=== PATIENT | male | born 1945 | race Caucasian/White ===

== ENCOUNTER 2020-06-01 06:09 | Observation (INO) | payer OTHER ==
[2020-06-01 07:51] LABS: Absolute Lymphocytes (CBC) 0.8 K/uL (0.7-4.9); Basophils % 0.6 % (0-1.3); Hematocrit 35.6 % (39.6-49.0); Lymphocytes % 11.3 % (15.3-44.8); MPV 7.6 fL (7.6-11.3); RBC Red Blood Cell Count 3.53 M/uL (4.33-5.43)
[2020-06-01 07:52] LABS: Protime INR 1.23
[2020-06-01 08:01] LABS: ALT/SGPT 21 U/L (12-78); AST/SGOT 17 U/L (15-37); Albumin 2.1 g/dL (3.4-5.0); Alkaline Phosphatase 335 U/L (45-117); BUN Blood Urea Nitrogen 23 mg/dL (7-18); Bicarbonate 31 mmol/L (21-32); Bilirubin Direct 0.5 mg/dL (0-0.2); Bilirubin Total 0.8 mg/dL (0.2-1.0); Glucose Level 92 mg/dL (74-106); Magnesium 2.2 mg/dL (1.8-2.4); NT PRO-BNP 1659 pg/mL (<125); Potassium 4.1 mmol/L (3.5-5.1); Protein, Total 6.6 g/dL (6.4-8.2); Sodium Level 136 mmol/L (136-145); Troponin (Emerg Dept Use Only) < 0.02 ng/mL (0.0-0.045)
--- NOTE | 2020-06-01 08:22 | RAD REPORT ---
EXAM DESCRIPTION: RAD - Chest Single View - 06/01/2020 6:56 am CLINICAL HISTORY: DYSPNEA COMPARISON: None TECHNIQUE: AP portable chest image was obtained 06/01/2020 6:56 am . FINDINGS: Lung volumes are low. Interstitial markings are accentuated by body habitus and low lung v olumes. Heart size is upper normal to slightly enlarged, accentuated by exam limitations. Vasculature is accentuated as well. Moderately large bilateral pleural effusions are present. No pneumothorax se en. No acute bony abnormality seen. No acute aortic findings suspected. IMPRESSION: Moderate-sized bilateral pleural effusions. Heart, vasculature and lung markings are prominent on this baseline study. Failure or volume overload cannot be excluded.
[2020-06-01] MEDS ORDERED: FUROSEMIDE 40 MG/4 ML VIAL ONE (08:25)
--- NOTE | 2020-06-01 08:57 | EDPHYS ---
Physician Documentation [facility] Name: John Gauthier Age: 74 yrs Sex: Male : 1945 Arrival Date: 06/01/2020 Time: 06:12 Bed 5 Private MD: ED Physician Roland Burt HPI: 06/01 06:57 This 74 yrs old Male presents to ER via Wheelchair with complaints of mh7 Breathing Difficulty. 06:57 The patient has shortness of breath at rest. mh7 06:57 Onset: The symptoms/episode began/occurred 1 week(s) ago. Duration: The symptoms are mh7 continuous, and are steadily getting worse. The patient's shortness of breath is aggravated by light activity. Associated signs and symptoms: Pertinent negatives: chest pain, non-productive cough, productive cough, diaphoresis, dizziness, fever, hemoptysis, loss of consciousness, nausea, numbness in extremities, visual changes, vomiting. Severity of symptoms: At their worst the symptoms were moderate 3 day(s) ago, in the emergency department the symptoms are unchanged. The patient has experienced similar episodes in the past, chronically. States that he has cirrhosis and usually gets paracentesis every week but last was 2 weeks ago since he is traveling.. 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 - Social history:: Smoking status: Patient denies any tobacco usage or history of. ROS: 06:57 Constitutional: Negative for fever, chills, and weight loss, Eyes: Negative for injury, mh7 pain, redness, and discharge, ENT: Negative for injury, pain, and discharge, Neck: Negative for injury, pain, and swelling, Cardiovascular: Negative for chest pain, palpitations, and edema, Back: Negative for injury and pain, : Negative for injury, bleeding, discharge, and swelling, MS/Extremity: Negative for injury and deformity, Skin: Negative for injury, rash, and discoloration, Neuro: Negative for headache, weakness, numbness, tingling, and seizure, Psych: Negative for depression, anxiety, suicide ideation, homicidal ideation, and hallucinations, Allergy/Immunology: Negative for hives, rash, and allergies, Endocrine: Negative for neck swelling, polydipsia, polyuria, polyphagia, and marked weight changes, Hematologic/Lymphatic: Negative for swollen nodes, abnormal bleeding, and unusual bruising. Exam: 06:57 Constitutional: This is a well developed, well nourished patient who is awake, alert, mh7 and in no acute distress. Head/Face: Normocephalic, atraumatic. Eyes: Pupils equal round and reactive to light, extra-ocular motions intact. Lids and lashes normal. Conjunctiva and sclera are non-icteric and not injected. Cornea within normal limits. Periorbital areas with no swelling, redness, or edema. Neck: Trachea midline, no thyromegaly or masses palpated, and no cervical lymphadenopathy. Supple, full range of motion without nuchal rigidity, or vertebral point tenderness. No Meningismus. Chest/axilla: Normal chest wall appearance and motion. Nontender with no deformity. No lesions are appreciated. Cardiovascular: Regular rate and rhythm with a normal S1 and S2. No gallops, murmurs, or rubs. Normal PMI, no JVD. No pulse deficits. 06:57 Respiratory: Lungs have equal breath sounds bilaterally, clear to auscultation and percussion. No rales, rhonchi or wheezes noted. No increased work of breathing, no retractions or nasal flaring. 06:57 Back: No spinal tenderness. No costovertebral tenderness. Full range of motion. Skin: Warm, dry with normal turgor. Normal color with no rashes, no lesions, and no evidence of cellulitis. MS/ Extremity: Pulses equal, no cyanosis. Neurovascular intact. Full, normal range of motion. Neuro: Awake and alert, GCS 15, oriented to person, place, time, and situation. Cranial nerves II-XII grossly intact. Motor strength 5/5 in all extremities. Sensory grossly intact. Cerebellar exam normal. Normal gait. Psych: Awake, alert, with orientation to person, place and time. Behavior, mood, and affect are within normal limits. 06:57 Abdomen/GI: Inspection: distension, that is moderate, Palpation: nontender, in all quadrants. Vital Signs: 06:29 BP 112 / 76; Pulse 88; Resp 25; Temp 97.5; Pulse Ox 97% on R/A; Weight 106.59 kg; mg2 Height 6 ft. 0 in. (182.88 cm); 08:00 BP 98 / 63; Pulse 82; Resp 19; Pulse Ox 95% ; bp 09:17 BP 100 / 80; Pulse 82; Resp 23 S; Pulse Ox 97% on 3 lpm NC; jl7 10:00 BP 103 / 66; Pulse 85; Resp 15; Pulse Ox 85% ; bp 11:00 BP 103 / 75; Pulse 86; Resp 16; Pulse Ox 92% on 2 lpm NC; bp 12:00 BP 102 / 69; Pulse 79; Resp 21; Pulse Ox 100% ; bp 06:29 Body Mass Index 31.87 (106.59 kg, 182.88 cm) mg2 MDM: 07:12 Patient medically screened. rn 08:55 Differential diagnosis: pulmonary edema, ascites, cirrhosis, volume overload. Data rn reviewed: vital signs, nurses notes, lab test result(s), EKG, radiologic studies, plain films, and as a result, I will admit patient. Counseling: I had a detailed discussion with the patient and/or guardian regarding: the historical points, exam findings, and any diagnostic results supporting the discharge/admit diagnosis, lab results, radiology results, the need for further work-up and treatment in the hospital. Response to treatment: the patient's symptoms have mildly improved after treatment, and as a result, I will admit patient. ED course: Will admit to Dr. Paula for diuresis and paracentesis. . 06/01 06:33 Order name: Basic Metabolic Panel mg2 06/01 06:33 Order name: CBC with Diff; Complete Time: 08:55 mg2 06/01 06:33 Order name: LFT's; Complete Time: 08:55 mg2 06/01 06:33 Order name: Magnesium; Complete Time: 08:55 mg2 06/01 06:33 Order name: NT PRO-BNP; Complete Time: 08:55 mg2 06/01 06:33 Order name: PT-INR; Complete Time: 08:55 mg2 06/01 06:33 Order name: Troponin (emerg Dept Use Only); Complete Time: 08:55 mg2 06/01 06:33 Order name: XRAY Chest (1 view); Complete Time: 08:55 mg2 06/01 06:33 Order name: EKG; Complete Time: 06:34 mg2 06/01 06:33 Order name: Cardiac monitoring; Complete Time: 06:53 mg2 06/01 06:34 Order name: Basic Metabolic Panel; Complete Time: 08:55 EDMS 06/01 08:28 Order name: SARS-COV-2 RT PCR; Complete Time: 08:55 EDMS 06/01 06:33 Order name: EKG - Nurse/Tech; Complete Time: 06:53 mg2 06/01 06:33 Order name: IV Saline Lock; Complete Time: 06:53 mg2 06/01 06:33 Order name: Labs collected and sent; Complete Time: 06:53 mg2 06/01 06:33 Order name: O2 Per Protocol; Complete Time: 06:53 mg2 06/01 06:33 Order name: O2 Sat Monitoring; Complete Time: 06:53 mg2 Administered Medications: 08:00 Drug: Lasix 40 mg Route: IVP; Site: right jugular; bp 11:13 Follow up: Response: No adverse reaction bp Disposition: 06/01/20 08:58 Hospitalization ordered by Maikol Paula for Observation. Preliminary diagnosis are Ascites, Pleural effusion, not elsewhere classified, Dyspnea, unspecified. - Bed requested for Telemetry/MedSurg (observation). - Status is Observation. bp - Condition is Stable. - Problem is an ongoing problem. - Symptoms have improved. Signatures: Dispatcher [employer] EDTN Roland Burt MD MD rn Martinez, Eric em1 Rom Mulligan RN RN bp Isiah Zavaleta RN RN mg2 Hermilo Diaz MD MD 7 Corrections: (The following items were deleted from the chart) 07:40 07:13 CORONAVIRUS+[id number] ordered. [facility] EDTN 08:58 08:57 06/01/2020 08:57 Discharged to Home. Impression: Ascites; Pleural effusion, not rn elsewhere classified; Dyspnea, unspecified. Condition is Stable. Forms are SBAR form, Medication Reconciliation Form, Thank You Letter, Antibiotic Education, Prescription Opioid Use. Follow up: Private Physician; When: As needed; Reason: Recheck today's complaints, Re-evaluation by your physician. Problem is an ongoing problem. Symptoms have improved. rn 09:53 08:58 Hospitalization Ordered by Maikol Paula DO for Inpatient Admission. Preliminary rn diagnosis is Ascites; Pleural effusion, not elsewhere classified; Dyspnea, unspecified. Bed requested for Telemetry/MedSurg (Inpatient). Status is Inpatient Admission. Condition is Stable. Problem is an ongoing problem. Symptoms have improved. rn 09:53 09:53 06/01/2020 08:58 Hospitalization Ordered by Maikol Paula DO for Observation. rn Preliminary diagnosis is Ascites; Pleural effusion, not elsewhere classified; Dyspnea, unspecified. Bed requested for Telemetry/MedSurg (Inpatient). Status is Observation. Condition is Stable. Problem is an ongoing problem. Symptoms have improved. rn 11:46 09:53 06/01/2020 08:58 Hospitalization Ordered by MaikolJeanine HICKEY for Observation. em1 Preliminary diagnosis is Ascites; Pleural effusion, not elsewhere classified; Dyspnea, unspecified. Bed requested for Telemetry/MedSurg (observation). Status is Observation. Condition is Stable. Problem is an ongoing problem. Symptoms have improved. rn 12:24 11:46 06/01/2020 08:58 Hospitalization Ordered by Maikol Chai HICKEY for Observation. bp Preliminary diagnosis is Ascites; Pleural effusion, not elsewhere classified; Dyspnea, unspecified. Bed requested for Telemetry/MedSurg (observation). Status is Observation. Condition is Stable. Problem is an ongoing problem. Symptoms have improved. em1
--- NOTE | 2020-06-01 08:57 | ER ---
Nurse's Notes [facility] Name: John Gauthier Age: 74 yrs Sex: Male : 1945 Arrival Date: 06/01/2020 Time: 06:12 Bed 5 Private MD: Diagnosis: Ascites;Pleural effusion, not elsewhere classified;Dyspnea, unspecified Presentation: 06/01 06:29 Chief complaint: Patient states: i have difficulty breathing and I need paracentesis. i mg2 usually get paracentesis every week and the last time i had it was 2 weeks ago in [place] and [place]. Coronavirus screen: Client denies travel out of the [place] in the last 14 days. Ebola Screen: No symptoms or risks identified at this time. Initial Sepsis Screen: Does the patient meet any 2 criteria? RR > 20 per min. Does the patient have a suspected source of infection? No. Patient's initial sepsis screen is negative. Risk Assessment: Do you want to hurt yourself or someone else? Patient reports no desire to harm self or others. Onset of symptoms was June 01, 2020. 06:29 Method Of Arrival: Wheelchair [facility] 06:29 Acuity: JOSE L 2 mg2 Triage Assessment: 07:00 General: Appears distressed, uncomfortable, Behavior is calm, cooperative, appropriate bp for age. Pain: Denies pain. EENT: SCLERA ICTERIC. Neuro: Level of Consciousness is awake, alert, obeys commands, Oriented to person, place, time, situation, Appropriate for age. Cardiovascular: No deficits noted. Respiratory: Reports shortness of breath Airway is patent Respiratory effort is labored, Breath sounds with rales bilaterally. Onset: The symptoms/episode began/occurred at an unknown time. the patient has moderate shortness of breath. GI: Abdomen is noted to have ascites. : No signs and/or symptoms were reported regarding the genitourinary system. Derm: Skin is jaundiced. Musculoskeletal: No deficits noted. 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 - Social history:: Smoking status: Patient denies any tobacco usage or history of. Screenin:46 Abuse screen: Denies threats or abuse. Denies injuries from another. Nutritional mg2 screening: No deficits noted. Tuberculosis screening: No symptoms or risk factors identified. Fall Risk IV access (20 points). Assessment: 06:45 General: Appears distressed, Behavior is calm, cooperative. Pain: Denies pain. Neuro: mg2 Level of Consciousness is awake, alert, obeys commands, Oriented to person, place, time, situation. Cardiovascular: Rhythm is sinus arrythmia. Respiratory: Airway is patent Respiratory effort is labored, Respiratory pattern is regular, tachypnea. GI: Abdomen is distended, noted to have ascites. : No signs and/or symptoms were reported regarding the genitourinary system. EENT: No signs and/or symptoms were reported regarding the EENT system. Derm: Skin is redness in the abdominal area. Musculoskeletal: Circulation, motion, and sensation intact. Capillary refill < 3 seconds. 07:00 Reassessment: RECD REPORT FROM LEIGHANN ROTH. 74YO WM P/W SOB AND ASCITES, ANASARCA NOTED bp TO BLE. 08:00 Reassessment: No changes from previously documented assessment. Patient and/or family bp updated on plan of care and expected duration. Pain level reassessed. Patient is alert, oriented x 3, equal unlabored respirations, skin warm/dry/pink. ALL CURRENT ORDERS COMPLETED. 08:30 Reassessment: Pt's O2 sats at 87%, requesting oxygen, ERD notified and O2 placed on pt jl7 via NC at 3 lpm. 09:36 Reassessment: No changes from previously documented assessment. Patient and/or family bp updated on plan of care and expected duration. Pain level reassessed. Patient is alert, oriented x 3, equal unlabored respirations, skin warm/dry/pink. DR SUERO AT B/S FOR ADMIT. 11:12 Reassessment: No changes from previously documented assessment. Patient and/or family bp updated on plan of care and expected duration. Pain level reassessed. Patient is alert, oriented x 3, equal unlabored respirations, skin warm/dry/pink. ADMIT IN PROCESS. 12:11 Reassessment: ADMIT COMPLETE. TRANSPORT MELINDA PENDING. bp Vital Signs: 06:29 BP 112 / 76; Pulse 88; Resp 25; Temp 97.5; Pulse Ox 97% on R/A; Weight 106.59 kg; mg2 Height 6 ft. 0 in. (182.88 cm); 08:00 BP 98 / 63; Pulse 82; Resp 19; Pulse Ox 95% ; bp 09:17 BP 100 / 80; Pulse 82; Resp 23 S; Pulse Ox 97% on 3 lpm NC; jl7 10:00 BP 103 / 66; Pulse 85; Resp 15; Pulse Ox 85% ; bp 11:00 BP 103 / 75; Pulse 86; Resp 16; Pulse Ox 92% on 2 lpm NC; bp 12:00 BP 102 / 69; Pulse 79; Resp 21; Pulse Ox 100% ; bp 06:29 Body Mass Index 31.87 (106.59 kg, 182.88 cm) mg2 ED Course: 06:12 Patient arrived in ED. cl3 06:21 Hermilo Diaz MD is Attending Physician. mh7 06:29 Isiah Zavaleta, IRA is Primary Nurse. mg2 06:31 Triage completed. mg2 06:32 Arm band placed on. mg2 06:46 Patient has correct armband on for positive identification. Door closed. Warm blanket mg2 given. 06:47 No provider procedures requiring assistance completed. mg2 06:54 Inserted saline lock: 24 gauge in left forearm, using aseptic technique. Blood mg2 collected. by IRA Cisneros. 06:56 XRAY Chest (1 view) In Process Unspecified. EDMS 07:12 Attending Physician role handed off by Hermilo Diaz MD rn 07:12 Roland Burt MD is Attending Physician. rn 07:26 Inserted saline lock: 18 gauge in right EJ, using aseptic technique. Blood collected. mg2 08:01 Primary Nurse role handed off by Isiah Zavaleta, IRA bp 08:01 Rom Mulligan, IRA is Primary Nurse. bp 08:58 Maikol Suero DO is Hospitalizing Provider. rn 12:12 Patient admitted, IV remains in place. bp Administered Medications: 08:00 Drug: Lasix 40 mg Route: IVP; Site: right jugular; bp 11:13 Follow up: Response: No adverse reaction bp Outcome: 08:57 Discharge ordered by . rn 08:58 Decision to Hospitalize by Provider. rn 12:11 Admitted to Med/surg accompanied by tech, via wheelchair, room 220, with chart, Report bp called to ASHLEY ROTH 12:11 Condition: stable 12:11 Discharge instructions given to patient, Instructed on the need for admit. 12:24 Patient left the ED. bp Signatures: Dispatcher [employer] EDMS Roland Burt MD MD rn Leal, Jahala, RN RN jl7 Rom Mulligan RN RN bp Isiah Zavaleta RN RN mg2 Brian Martínez 3 Hermilo Diaz MD MD 7
[2020-06-01 12:55] VITALS: BMI 31.8
--- NOTE | 2020-06-01 13:46 | P.HP ---
Certification for Inpatient Patient admitted to: Observation With expected LOS: <2 Midnights Patient will require the following post-hospital care: None Practitioner: I am a practitioner with admitting privileges, knowledge of patient current condition, hospital course, and medical plan of care. Services: Services provided to patient in accordance with Admission requirements found in Title 42 Section 412.3 of the Code of Federal Regulations Patient History Date of Service: 06/01/20 Primary Care Provider: [place] Reason for admission: SOB History of Present Illness: 74-year-old male with history of cardiac cirrhosis, chronic renal disease stage 3, hypothyroidism. Patient presented with increasing shortness of breath and edema to the lower extremities and ascites. Patient is from [place]. He staying with his who is a nurse traveler. He was in the process of making arrangements to see GI locally. He was trying to arrange a paracentesis. He has been getting paracentesis every other week. Ascites and increasing shortness of breath has been getting worse. He denies any fever, chills. In the ER patient was evaluated. Chest x-ray showed bilateral pleural effusions. White count 7.2, hemoglobin 11.8. Platelet count 200. Sodium 136, potassium 4.1. BUN 23, creatinine 1.41 with a GFR 49. Glucose 92. Troponin unremarkable. BNP 16 52. Patient was tested negative for COVID. Patient required oxygen in the emergency room. Patient admitted for further evaluation and treatment. Patient stable this time. Patient reports that he is being evaluated for possible heart surgery in the future. Allergies No Known Allergies Allergy (Unverified 06/01/20 13:23) Home medications list reviewed: Yes Home Medications: Colchicine [Colcrys *] 0.3 mg PO BID 06/01/20 Furosemide [Lasix] 60 mg PO BID 06/01/20 Gabapentin 300 mg PO BEDTIME 06/01/20 Levothyroxine [Synthroid] 50 mcg PO [id number] 06/01/20 Midodrine HCl [Proamatine] 5 mg PO TID 06/01/20 Spironolactone [Aldactone] OP 06/01/20 Tamsulosin HCl [Flomax] 0.4 mg PO DAILY 06/01/20 - Past Medical/Surgical History Has patient received pneumonia vaccine in the past: Yes Diabetic: No -: Cardiac cirrhosis -: Chronic renal disease stage III -: Hypothyroidism -: APPENDECTOMY -: L LEG FRACTURE Psychosocial/ Personal History: Patient lives with . is a traveling nurse. She is in the area to work. He gets this care mostly in [place]. - Family History Family History: Reviewed- Non-Contributory - Social History Smoking Status: Former smoker Counseled patient to stop smoking for: less than 10 minutes Alcohol use: No CD- Drugs: No Caffeine use: Yes Place of Residence: Home Review of Systems General: Weakness, Malaise, As per HPI Eyes: Unremarkable ENT: Unremarkable Respiratory: Shortness of Breath, SOB with Excertion, As per HPI Cardiovascular: Edema, As per HPI Gastrointestinal: Unremarkable Genitourinary: Unremarkable Musculoskeletal: Pedal edema, As per HPI Integumentary: As per HPI Neurological: Unremarkable Lymphatics: Unremarkable Physical Examination - Vital Signs Temperature: 97.5 F Blood Pressure: 102/69 Pulse: 79 Respirations: 21 - Physical Exam General: Alert, In no apparent distress, Oriented x3, Cooperative HEENT: Atraumatic Neck: Supple Respiratory: Crackles/rales (Crackles to the bases bilateral) Cardiovascular: Normal pulses, Regular rate/rhythm Gastrointestinal: Normal bowel sounds, No masses, No rebound, No guarding, Ascites (Ascites noted) Musculoskeletal: No tenderness, No warmth Integumentary: Tenderness/swelling (1 to 2+ pitting edema to the lower extremities bilateral) Neurological: Normal speech, Normal strength at 5/5 x4 extr, Normal tone, Normal affect - Studies Laboratory Data (last 24 hrs) 06/01/20 07:26: PT 14.2 H, INR 1.23 06/01/20 07:26: WBC 7.20, Hgb 11.8 L, Hct 35.6 L, Plt Count 200 06/01/20 07:26: Sodium 136, Potassium 4.1, BUN 23 H, Creatinine 1.41 H, Glucose 92, Magnesium 2.2, Total Bilirubin 0.8, AST 17, ALT 21, Alkaline Phosphatase 335 H Assessment and Plan - Plan Impression: Dyspnea, hypoxia secondary to bilateral pleural effusions complicated with cardiac cirrhosis and ascites suspect underlying congestive heart failure Chronic renal disease stage III Hypothyroidism Gout Plan: Dyspnea, hypoxia secondary to bilateral pleural effusions complicated with cardiac cirrhosis and ascites suspect underlying congestive heart failure: Patient will be admitted for further evaluation and treatment. Will start IV Lasix 40 mg 1 pill twice daily. Continue Aldactone 50 mg 1 pill twice daily. Will will make arrangements for ultrasound-guided paracentesis. Will try to remove less than 5 L of ascitic fluid. Will need to provide IV albumin after the procedure. Will also obtain lab/chemistry/cytology from fluid. Will order echocardiogram to further evaluate. Will also continue with Midodrine 10 mg 1 pill 3 times a day, lactulose 3 times a day. Will make arrangements for home oxygen maintain sats above 93%. Anticipate improvement over the next 24-48 hr. Will try to get in contact with GI locally as the patient was to follow up with GI to establish care today. Patient will likely need to establish care with GI so as to follow up and have repeat paracentesis in the future. This can be done as an outpatient in the future. Anticipate improvement with diuresis and paracentesis. Continue monitor closely. Recheck chest x-ray tomorrow. Advanced care planning addressed. Patient is do not resuscitate. Anticipate possible discharge tomorrow if improved. Chronic renal disease stage III: Monitor closely. Hypothyroidism: Continue home medication Gout: Restart home medication. Discharge Plan: Home Plan to discharge in: 48 Hours - Advance Directives Does patient have a Living Will: No Does patient have a Durable POA for Healthcare: No - Code Status/Comfort Care Code Status Assessed: Yes (Patient is do not resuscitate.) Time Spent Managing Pts Care (In Minutes): 55
[2020-06-01] MEDS ORDERED: ACETAMINOPHEN 500 MG TAB PO PRN (14:34)
[2020-06-01] MEDS ORDERED: ONDANSETRON 4 MG/2 ML VIAL IV PRN (14:34)
[2020-06-01] MEDS: MIDODRINE HCL 5 MG TABLET PO SCH ×2 (15:41→21:45)
--- NOTE | 2020-06-01 17:08 | EKG ---
Test Date: 2020-06-01 Test Time: 06:38:27 Packaging Line Operator: MG MEASUREMENT RESULTS: Intervals: Rate: 86 MI: 148 QRSD: 84 QT: 384 QTc: 459 [place]: P: 37 MI: 148 QRS: 60 T: 0 INTERPRETIVE STATEMENTS: Normal sinus rhythm with sinus arrhythmia Low voltage QRS Nonspecific T wave abnormality Abnormal ECG No previous ECG available for comparison Electronically Signed On 06-01-20 17:06:01 NEWS CAMERA OPERATOR by Allan Mendez
[2020-06-01] MEDS: LACTULOSE 20 GM/30 ML UCUP PO SCH ×2 (17:15→21:00)
[2020-06-01] MEDS: FUROSEMIDE 40 MG/4 ML VIAL IV SCH (17:15)
[2020-06-01 18:13] LABS: Urine Appearance CLEAR; Urine Bilirubin NEGATIVE (NEG); Urine Blood NEGATIVE (NEG); Urine Color YELLOW; Urine Glucose NEGATIVE (NEG); Urine Microscopic Reflex ORDER UMIC; Urine Protein NEGATIVE (NEG); Urine Urobilinogen 0.2 mg/dL (0.2-1.0)
[2020-06-01 18:21] LABS: Urine Bacteria <20 /HPF (NONE SEEN); Urine Mucus 1+ /HPF (NONE SEEN); Urine RBC NONE SEEN /HPF (NONE SEEN)
[2020-06-01] MEDS: SPIRONOLACTONE 25 MG TABLET PO SCH (21:00)
[2020-06-02] MEDS ORDERED: LEVOTHYROXINE SOD 0.1 MG TAB PO SCH (06:30)
[2020-06-02] MEDS ORDERED: LEVOTHYROXINE SOD 0.075 MG TAB PO SCH (06:30)
[2020-06-02] MEDS ORDERED: PANTOPRAZOLE 40MG TABLET PO SCH (06:30)
[2020-06-02 06:33] LABS: Basophils % 0.8 % (0-1.3); Hematocrit 41.3 % (39.6-49.0); Lymphocytes % 14.7 % (15.3-44.8); MPV 7.5 fL (7.6-11.3); RBC Red Blood Cell Count 4.02 M/uL (4.33-5.43)
[2020-06-02 06:53] LABS: Albumin 2.3 g/dL (3.4-5.0); Bilirubin Total 0.8 mg/dL (0.2-1.0); Magnesium 2.3 mg/dL (1.8-2.4); Potassium 4.1 mmol/L (3.5-5.1); Protein, Total 7.6 g/dL (6.4-8.2)
[2020-06-02 07:00] LABS: Thyroid Stimulating Hormone 29.2 uIU/mL (0.360-3.740)
[2020-06-02] MEDS: SPIRONOLACTONE 25 MG TABLET PO SCH (08:43)
[2020-06-02] MEDS: LACTULOSE 20 GM/30 ML UCUP PO SCH ×2 (08:43→13:15)
[2020-06-02] MEDS: MIDODRINE HCL 5 MG TABLET PO SCH ×2 (08:44→13:14)
[2020-06-02] MEDS ORDERED: FOLIC ACID 1 MG TABLET PO SCH (09:00)
[2020-06-02] MEDS: FUROSEMIDE 40 MG/4 ML VIAL IV SCH ×2 (09:00→16:36)
[2020-06-02] MEDS ORDERED: ENOXAPARIN 40 MG/0.4 ML SQ SCH (09:00)
[2020-06-02] MEDS ORDERED: THIAMINE HCL 100 MG TABLET PO SCH (09:00)
--- NOTE | 2020-06-02 09:48 | RAD REPORT ---
EXAM DESCRIPTION: US - Paracentesis Proc Guidance - 06/02/2020 9:41 am CLINICAL HISTORY: Cardiac cirrhosis and ascites FINDINGS: The risks, benefits and alternatives to the procedure were explained to the patient and in formed consent obtained. The skin and subcutaneous tissues were anesthetized with Lidocaine. Under sonographic guidance an 8 F rench catheter was placed into the right lower quadrant. 5 liters of yellow fluid was removed and sen t to the lab The patient experienced no immediate complication. IMPRESSION: Paracentesis
[2020-06-02] MEDS: ALBUMIN HUMAN 25% 100 ML IV SCH ×2 (10:29→11:12)
--- NOTE | 2020-06-02 10:55 | P.DS ---
Admission Date: 06/01/20 Discharge Date: 06/02/20 Primary Care Provider: [place] Disposition: ROUTINE DISCHARGE Discharge Condition: GOOD Reason for Admission: SOB Consultations: Radiology Procedures: COVID: Negative Follow up CXR: FINDINGS: The lungs are better inflated. Moderately large bilateral pleural effusions have shown no improvement. Lung base atelectasis and/ or infiltrate are still present. Trachea remains midline. Heart size is normal. Central vasculature and interstitial pattern has improved appear no pneumothorax. No acute bony finding noted. No aortic abnormality. IMPRESSION: CHF/volume overload findings have improved. Patient still has moderately large bilateral pleural effusions with lung base atelectasis. Radiology assisted US guided paracentesis: FINDINGS: The risks, benefits and alternatives to the procedure were explained to the patient and informed consent obtained. The skin and subcutaneous tissues were anesthetized with Lidocaine. Under sonographic guidance an 8 Sinhala catheter was placed into the right lower quadrant. 5 liters of yellow fluid was removed and sent to the lab The patient experienced no immediate complication. IMPRESSION: Paracentesis ECHO: Medical Problem List: Dyspnea, hypoxia secondary to bilateral pleural effusions complicated with cardiac cirrhosis and ascites suspect underlying congestive heart failure Chronic renal disease stage III Hypothyroidism Gout Brief History of Present Illness: 74-year-old male with history of cardiac cirrhosis, chronic renal disease stage 3, hypothyroidism. Patient presented with increasing shortness of breath and edema to the lower extremities and ascites. Patient is from [place]. He staying with his who is a nurse traveler. He was in the process of making arrangements to see GI locally. He was trying to arrange a paracentesis. He has been getting paracentesis every other week. Ascites and increasing shortness of breath has been getting worse. He denies any fever, chills. In the ER patient was evaluated. Chest x-ray showed bilateral pleural effusions. White count 7.2, hemoglobin 11.8. Platelet count 200. Sodium 136, potassium 4.1. BUN 23, creatinine 1.41 with a GFR 49. Glucose 92. Troponin unremarkable. BNP 16 52. Patient was tested negative for COVID. Patient required oxygen in the emergency room. Patient admitted for further evaluation and treatment. Patient stable this time. Patient reports that he is being evaluated for possible heart surgery in the future. Hospital Course: Patient presented with dyspnea, hypoxia secondary to bilateral pleural effusions complicated with cardiac cirrhosis and ascites. Patient likely with underlying congestive heart failure. Patient is statying with his who travels as a traveling nurse. Patient start to have increasing symptoms after he was holding his diuretic therapy at night. Patient was admitted for treatment. Patient was given IV diuretic therapy with improvement. Patient also had radiology assisted ultrasound-guided paracentesis. 5 L of ascitic fluid removed. Patient has improved. Patient appears to be at his baseline level. At discharge patient will continue with a 1500 cc per day fluid restriction and low-salt diet. At discharge medications have been adjusted. At discharge he will continue with Lasix 80 mg 1 pill twice daily for the next week then decrease to 40 mg 1 pill twice daily. The patient will continue with his Aldactone 50 mg 1 pill twice daily. Compliance with medication addressed in detail. Patient is originally from [place]. Patient plans to establish care locally with GI for recurrent paracentesis. He has made arrangements for future paracentesis within the next week or 2 with local GI. Recommend follow up with his communicable disease specialist and PCP in the next 1-2 weeks to follow up this hospitalization or as soon as he goes back to [place]. Prior to discharge home oxygen will be arranged. Patient currently on 2 L per nasal cannula. Maintain sats above 93%. Patient with chronic renal disease stage III. This appears stable at this time. Recommend no further use of nonsteroidal anti-inflammatories. Future medications will need to be renally dose. As mentioned above patient will continue with a 1500 cc per day fluid restriction. Recommend to recheck lab-BMP in 2-4 weeks to monitor stability. Recommend follow up with nephrology to further monitor and adjust medication. Patient with hypothyroidism. Tsh abnormal. At discharge will continue levothyroxine at 175 mcg daily. Recommend to recheck tsh and free T4 in 4-6 weeks to monitor his progress. Further adjustment in medication may be required at that time. This can be done with the help of his PCP. Patient with GERD. At discharge patient will continue with Protonix 40 mg daily. Patient with history of gout. At discharge patient will continue with Colcrys 0.3 mg 1 pill twice daily. Patient with history of neuropathy. At discharge patient will continue with his medication of gabapentin 300 mg at bedtime. Hold if with increase sedation. May need to further adjust gabapentin as increased doses can increase edema. This can be done with the help of his PCP. Patient with BPH. At discharge patient will continue with Flomax 0.4 mg 1 pill daily. At discharge patient will continue his other medications including folic acid 1 mg daily and thiamine 100 mg daily. Patient will also be provided lactulose to be use to maintain adequate bowel movement. He may be use as needed. Vital Signs/Physical Exam: Temp Pulse Resp BP Pulse Ox 97.4 F 83 20 108/62 98 06/02/20 08:00 06/02/20 08:00 06/02/20 08:00 06/02/20 08:00 06/02/20 08:00 General: Alert, In no apparent distress, Cooperative HEENT: Atraumatic Neck: Supple Respiratory: Other (Better air movement noted. Slight crackles to the bases) Cardiovascular: Normal pulses, Regular rate/rhythm Gastrointestinal: Normal bowel sounds, No masses, No rebound, No guarding, As cites (Ascites improved status post paracentesis. 5 L removed) Integumentary: Tenderness/swelling (1 to 2+ pitting edema to the lower extremities slight improvement noted) Neurological: Normal speech, Normal strength at 5/5 x4 extr, Normal tone, Normal affect Laboratory Data at Discharge: WBC 6.80 K/uL (4.3-10.9) 06/02/20 06:14 Hgb 13.2 g/dL (13.6-17.9) L 06/02/20 06:14 Hct 41.3 % (39.6-49.0) D 06/02/20 06:14 Plt Count 188 K/uL (152-406) 06/02/20 06:14 PT 14.2 SECONDS (9.5-12.5) H 06/01/20 07:26 INR 1.23 06/01/20 07:26 Sodium 137 mmol/L (136-145) 06/02/20 06:14 Potassium 4.1 mmol/L (3.5-5.1) 06/02/20 06:14 BUN 25 mg/dL (7-18) H 06/02/20 06:14 Creatinine 1.75 mg/dL (0.55-1.3) H 06/02/20 06:14 Glucose 80 mg/dL (74-106) 06/02/20 06:14 Magnesium 2.3 mg/dL (1.8-2.4) 06/02/20 06:14 Total Bilirubin 0.8 mg/dL (0.2-1.0) 06/02/20 06:14 AST 20 U/L (15-37) 06/02/20 06:14 ALT 22 U/L (12-78) 06/02/20 06:14 Alkaline Phosphatase 387 U/L (45-117) H 06/02/20 06:14 Home Medications: Colchicine [Colcrys *] 0.3 mg PO BID 06/01/20 Gabapentin 300 mg PO BEDTIME 06/01/20 Tamsulosin HCl [Flomax] 0.4 mg PO DAILY 06/01/20 Folic Acid 1 mg PO DAILY #90 tablet 06/02/20 Furosemide [Lasix] 80 mg PO BIDL #120 tab 06/02/20 Lactulose 15 ml PO TID PRN 06/02/20 Levothyroxine Sodium [Levothyroxine] 175 mcg PO DAILY 06/02/20 Midodrine HCl 10 mg PO TID #180 06/02/20 Pantoprazole [Protonix Tab] 40 mg PO DAILY #30 tab 06/02/20 Spironolactone [Aldactone] 1 tab PO BID 06/02/20 Thiamine HCl 100 mg PO DAILY #90 tablet 06/02/20 New Medications: Folic Acid 1 mg PO DAILY #90 tablet Furosemide [Lasix] 80 mg PO BIDL #120 tab Midodrine HCl 10 mg PO TID #180 Pantoprazole [Protonix Tab] 40 mg PO DAILY #30 tab Thiamine HCl 100 mg PO DAILY #90 tablet Physician Discharge Instructions: Patient presented with dyspnea, hypoxia secondary to bilateral pleural effusions complicated with cardiac cirrhosis and ascites. Patient likely with underlying congestive heart failure. Patient is statying with his who travels as a traveling nurse. Patient start to have increasing symptoms after he was holding his diuretic therapy at night. Patient was admitted for treatment. Patient was given IV diuretic therapy with improvement. Patient also had radiology assisted ultrasound-guided paracentesis. 5 L of ascitic fluid removed. Patient has improved. Patient appears to be at his baseline level. At discharge patient will continue with a 1500 cc per day fluid restriction and low-salt diet. At discharge medications have been adjusted. At discharge he will continue with Lasix 80 mg 1 pill twice daily for the next week then decrease to 40 mg 1 pill twice daily. The patient will continue with his Aldactone 50 mg 1 pill twice daily. Compliance with medication addressed in detail. Patient is originally from [place]. Patient plans to establish care locally with GI for recurrent pa racentesis. He has made arrangements for future paracentesis within the next week or 2 with local GI. Recommend follow up with his communicable disease specialist and PCP in the next 1-2 weeks to follow up this hospitalization or as soon as he goes back to [place]. Prior to discharge home oxygen will be arranged. Patient currently on 2 L per nasal cannula. Maintain sats above 93%. Patient with chronic renal disease stage III. This appears stable at this time. Recommend no further use of nonsteroidal anti-inflammatories. Future medications will need to be renally dose. As mentioned above patient will continue with a 1500 cc per day fluid restriction. Recommend to recheck lab-BMP in 2-4 weeks to monitor stability. Recommend follow up with nephrology to further monitor and adjust medication. Patient with hypothyroidism. Tsh abnormal. At discharge will continue levothyroxine at 175 mcg daily. Recommend to recheck tsh and free T4 in 4-6 weeks to monitor his progress. Further adjustment in medication may be required at that time. This can be done with the help of his PCP. Patient with GERD. At discharge patient will continue with Protonix 40 mg daily. Patient with history of gout. At discharge patient will continue with Colcrys 0.3 mg 1 pill twice daily. Patient with history of neuropathy. At discharge patient will continue with his medication of gabapentin 300 mg at bedtime. Hold if with increase sedation. May need to further adjust gabapentin as increased doses can increase edema. This can be done with the help of his PCP. Patient with BPH. At discharge patient will continue with Flomax 0.4 mg 1 pill daily. At discharge patient will continue his other medications including folic acid 1 mg daily and thiamine 100 mg daily. Patient will also be provided lactulose to be use to maintain adequate bowel movement. He may be use as needed. Diet: Renal Activity: Fall precautions Followup: [facility] [Primary Care Provider] - Time spent managing pt's care (in minutes): 55
[2020-06-02 13:28] LABS: Appearance SLT. TURBID (CLEAR); Body Fluid Source PLEURAL; Body Fluid WBC 88 /mm^3; Color of fluid Colorless (COLORLESS)
--- NOTE | 2020-06-02 14:03 | ECHO ---
HEIGHT: 6 ft 0 in WEIGHT: 235 lb 0 oz DATE OF STUDY: 06/02/[address]: Maikol Paula DO 2-DIMENSIONAL: YES M.MODE: YES DOPPLER: YES COLOR FLOW: YES TDS: PORTABLE: DEFINITY: BUBBLE STUDY: DIAGNOSIS: CONGESTIVE HEART FAILURE CARDIAC HISTORY: CATHERIZATION: SURGERY: PROSTHETIC VALVE: PACEMAKER: MEASUREMENTS (cm) DIASTOLIC (NORMALS) SYSTOLIC (NORMALS) IVSd 0.8 (0.6-1.2) LA Diam 3.4 (1.9-4.0) LVEF 89% LVIDd 3.3 (3.5-5.7) LVIDs 1.4 (2.0-3.5) %FS 58% LVPWd 0.9 (0.6-1.2) Ao Diam 2.5 (2.0-3.7) 2 DIMENSIONAL ASSESSMENT: RIGHT ATRIUM: NORMAL LEFT ATRIUM: NORMAL RIGHT VENTRICLE: NORMAL LEFT VENTRICLE: NORMAL TRICUSPID VALVE: NORMAL MITRAL VALVE: MITRAL ANNULAR CALCIFICATION PULMONIC VALVE: NORMAL AORTIC VALVE: SCLEROSIS PERICARDIAL EFFUSION: NONE AORTIC ROOT: NORMAL LEFT VENTRICULAR WALL MOTION: DIASTOLIC DYSFUNCTION DOPPLER/COLOR FLOW: NORMAL COMMENTS: DECREASED LEFT VENTRICULAR COMPLIANCE. NORMAL LEFT VENTRICULAR EJECTION FRACTION. AORTIC SCLEROSIS - NO STENOSIS. MITRAL ANNULAR CALCIFICATION. TECHNOLOGIST: MAHNAZ WALTER
--- NOTE | 2020-06-02 14:47 | RAD REPORT ---
EXAM DESCRIPTION: RAD - Chest Pa And Lat (2 Views) - 06/02/2020 2:08 pm CLINICAL HISTORY: follow up CHF/ascites/paracentesis COMPARISON: Portable June 01 TECHNIQUE: Frontal and lateral views of the chest were obtained. FINDINGS: The lungs are better inflated. Moderately large bilateral pleural effusions have shown no improvement. Lung base atelectasis and/ or infiltrate are still present. Trachea remains midline. He art size is normal. Central vasculature and interstitial pattern has improved appear no pneumothorax. No acute bony finding noted. No aortic abnormality. IMPRESSION: CHF/volume overload findings have improved. Patient still has moderately large bilateral pleural effusions with lung base atelectasis.
[2020-06-02 16:36] VITALS: BP 101/60
[2020-06-02 16:42] VITALS: O2SAT 98
[2020-06-02 17:34] VITALS: TEMP 97.6
== END 2020-06-02 18:11 | disposition home or self-care (01) ==
LOC: ER 06:09 → ERHOLD 10:48 → 2ND 12:02
PROVIDERS: ADMIT Family Medicine; ATTEND Family Medicine
DX: J90 Pleural effusion, not elsewhere classified (principal); Z20.822 Contact with and (suspected) exposure to COVID-19; R94.31 Abnormal electrocardiogram [ECG] [EKG]; N18.30 Chronic kidney disease, stage 3 unspecified; E03.9 Hypothyroidism, unspecified; M10.9 Gout, unspecified; K76.1 Chronic passive congestion of liver; R18.8 Other ascites; N40.0 Benign prostatic hyperplasia without lower urinary tract symptoms; G62.9 Polyneuropathy, unspecified; K21.9 Gastro-esophageal reflux disease without esophagitis; Z87.891 Personal history of nicotine dependence
CPT/HCPCS: 36415; 49083; 71045; 71046; 80048; 80053; 80076; 81003; 81015; 83735; 83880; 84439; 84443; 84484; 85025; 85610; 87070; 87077; 87086; 87088; 87186; 88108; 88305; 89050; 93005; 93306; 96374; 99285; G0378; J1940; P9047; U0003

== ENCOUNTER 2020-06-10 08:48 | Day surgery (SDC) | payer OTHER ==
[2020-06-10 09:44] VITALS: BMI 31.8
--- NOTE | 2020-06-10 11:17 | RAD REPORT ---
EXAM DESCRIPTION: US - Paracentesis Proc Guidance - 06/10/2020 10:53 am CLINICAL HISTORY: ASCITES Ascites COMPARISON: Paracentesis Proc Guidance dated 06/02/2020 FINDINGS: Informed consent was obtained and time-out was performed. Patient's abdomen was prepped and draped in the usual sterile fashion. 1% lidocaine was used for loca l anesthetic purposes. A small skin incision was made along the right lower quadrant. A paracentesis catheter was guided int o the peroneal cavity under sonographic guidance. A small amount of fluid was sent for requested lab studies. A large volume paracentesis was performed . The patient tolerated the procedure well. Patient was administered IV albumin per protocol following the procedure. IMPRESSION: Successful ultrasound-guided paracentesis.
[2020-06-10] MEDS ORDERED: ALBUMIN HUMAN 25% 300 ML IV ONE (11:59)
[2020-06-10 13:44] VITALS: O2SAT 100
[2020-06-10 13:45] VITALS: TEMP 97
[2020-06-10 13:48] VITALS: BP 96/58
[2020-06-10 14:55] LABS: Body Fluid WBC 116 /mm^3
[2020-06-10 15:38] LABS: Appearance SLT. TURBID (CLEAR); Body Fluid Source PERITONEAL; Color of fluid Yellow (COLORLESS)
== END 2020-06-10 13:30 | disposition home or self-care (01) ==
LOC: DS 08:48
PROVIDERS: ATTEND Internal Medicine Gastroenterology
DX: K74.60 Unspecified cirrhosis of liver (principal); R18.8 Other ascites
CPT/HCPCS: 87070; 36415; 89050; 96365; 49083; 96366; P9047